=== PATIENT | male | born 1965 | race Caucasian/White ===

== ENCOUNTER 2023-02-18 18:40 | Emergency (ER) | payer BC ==
[~2023-02-18] VITALS: Ht 185.4 cm; Wt 129.3 kg
[2023-02-18 18:46] VITALS: BP_SYST 108; PULSE 65; RESP 20; TEMP 96.9; O2SAT 98
[2023-02-18] MEDS ORDERED: ASPIRIN 81 MG TAB.CHEW PO ONE (19:00)
[2023-02-18] MEDS ORDERED: dilTIAZem HCL IVP 5 MG/ML VIAL IVP ONE (19:30)
[2023-02-18] MEDS ORDERED: DILTIAZEM HCL 120 MG CAP.SR.24H PO ONE (19:30)
[2023-02-18] MEDS ORDERED: KETOROLAC TROMETHAMINE 30 MG VIAL IVP ONE (19:30)
[2023-02-18 20:03] LABS: BASOPHILS % (AUTO) 0.6 % (0.0-2.0); EOSINOPHILS # (AUTO) 0.3 K/uL (0.0-0.4); EOSINOPHILS % (AUTO) 4.2 % (0.0-4.0); HEMATOCRIT 42.1 % (36-54); HEMOGLOBIN 14.1 g/dL (14.0-18.0); LYMPHOCYTES # (AUTO) 2.2 K/uL (1.0-5.5); LYMPHOCYTES % (AUTO) 32.5 % (20.5-51.5); MEAN CORPUSCULAR HEMOGLOBIN 29 pg (27-31); MEAN CORPUSCULAR HGB CONC 34 % (32-36); MEAN CORPUSCULAR VOLUME 88 fL (79.0-98.0); MONOCYTES # (AUTO) 0.7 K/uL (0.0-1.0); MONOCYTES % (AUTO) 9.7 % (1.7-9.3); NEUTROPHILS # (AUTO) 3.6 K/uL (1.8-7.7); PLATELET COUNT (AUTO) 198 K/uL (130-430); RED BLOOD CELL COUNT(AUTO) 4.81 MIL/uL (4.2-6.2); RED CELL DISTRIBUTION WIDTH 13.3 % (9.0-15.0); WHITE BLOOD COUNT (AUTO) 6.8 K/uL (4.8-10.8)
[2023-02-18 20:17] LABS: ANION GAP 11 (5-15); CALCIUM 9.2 mg/dL (8.4-11.0); CARBON DIOXIDE 27 mmol/L (23-29); CHLORIDE 102 mmol/L (98-107); CREATININE 0.83 mg/dL (0.55-1.30); GFR AFRICAN AMERICAN 122 mL/min (>90); GFR NON AFRICAN-AMERICAN 101 mL/min (>90); GLUCOSE 97 mg/dL (74-106); POTASSIUM 3.8 mmol/L (3.5-5.1); SODIUM SERUM 140 mmol/L (136-145); UREA NITROGEN, BLOOD 17 mg/dL (8-21)
[2023-02-18 20:21] LABS: ALANINE AMINOTRANSFERASE 35 U/L (12-78); ALBUMIN 3.8 g/dL (3.4-4.8); ASPARTATE AMINOTRANSFERASE 19 U/L (10-37); LIPASE 72 U/L (16-77); TOTAL BILIRUBIN 1.2 mg/dL (0.0-1.0); TOTAL PROTEIN, SERUM 7.5 g/dL (6.4-8.3)
[2023-02-18] MEDS ORDERED: LIDOCAINE VISCOUS 2%, 15 ML UDC MM ONE (21:45)
[2023-02-18] MEDS ORDERED: MAG-AL HYDROX/SIMETH 30 ML UDC PO ONE (21:45)
[2023-02-18] MEDS ORDERED: DICYCLOMINE HCL 10 MG/5 ML SOLUTION PO ONE (21:45)
[2023-02-18] MEDS ORDERED: OMEP40CA20 PO (22:15)
[2023-02-18] MEDS ORDERED: METO25TA3 PO (22:15)
[2023-02-18 23:39] VITALS: BP_SYST 125; PULSE 88; RESP 17; TEMP 97.5; O2SAT 98
== END 2023-02-18 23:41 | disposition home or self-care (01) ==
LOC: SED 18:40
DX: I48.91 Unspecified atrial fibrillation (principal); I49.9 Cardiac arrhythmia, unspecified; Z79.899 Other long term (current) drug therapy
CPT/HCPCS: 99285; 71045; 80053; 83880; 83690; 85025; 84484; 36415; 93005; J2001; J1885; J3490

== ENCOUNTER 2023-09-28 06:29 | Day surgery (SDC) | payer BC ==
[~2023-09-28] VITALS: Ht 185.4 cm; Wt 129.3 kg
[~2023-09-28 06:29] MED LIST: METO25TA3 PO; OMEP40CA20 PO
[2023-09-28] MEDS ORDERED: fentaNYL CITRATE/PF 100 MCG/2 ML AMP ONE (07:19)
[2023-09-28] MEDS ORDERED: MIDAZOLAM HCL 5 MG/5 ML VIAL ONE (07:20)
[2023-09-28 11:44] VITALS: O2SAT 96
[2023-09-28 14:51] VITALS: BP_SYST 129; PULSE 84; RESP 17
== END 2023-09-28 09:12 | disposition home or self-care (01) ==
LOC: SDS 06:29 → SMU 06:31 → SDS 09:12
PROVIDERS: ATTEND Internal Medicine
DX: R19.4 Change in bowel habit (principal); K63.89 Other specified diseases of intestine; K57.30 Diverticulosis of large intestine without perforation or abscess without bleeding; K64.8 Other hemorrhoids; K21.9 Gastro-esophageal reflux disease without esophagitis; Z90.49 Acquired absence of other specified parts of digestive tract; Z98.890 Other specified postprocedural states; Z79.899 Other long term (current) drug therapy; Z80.0 Family history of malignant neoplasm of digestive organs
CPT/HCPCS: 45380; 99152; 88305; G0378; J2250; J3010